=== PATIENT | male | born 1990 | race Caucasian/White ===

== ENCOUNTER 2017-11-08 14:52 | Emergency (ER) | payer MEDICAID | END 2017-11-08 15:38 | disposition home or self-care (01) | LOC: E/R 14:52 | DX: R06.02 Shortness of breath (principal); R05 Cough; M25.50 Pain in unspecified joint; J45.909 Unspecified asthma, uncomplicated; Z87.891 Personal history of nicotine dependence | CPT/HCPCS: 99284; Z7502 ==

== ENCOUNTER 2019-05-27 21:08 | Emergency (ER) | payer SELFPAY, MEDICAID ==
[2019-05-27] MEDS: IBUPROFEN 600 MG TAB PO (22:07)
== END 2019-05-27 23:40 | disposition home or self-care (01) ==
LOC: FTE 23:40
DX: M25.561 Pain in right knee (principal); J45.909 Unspecified asthma, uncomplicated; F17.210 Nicotine dependence, cigarettes, uncomplicated
CPT/HCPCS: 73562; 99283-25